=== PATIENT | female | born 1965 | race Caucasian/White ===

== ENCOUNTER → 2019-06-27 | Outpatient (CLI) | payer BC ==
[~2019-06-27] MED LIST: ANTIDEPRESSANT; ASPIRIN325; COLACE100 MG; CRESTOR20 MG; FLEXERIL PO; IBUPROFEN 800800 M1 PO; IBUPROFEN 800800 MG PO; METOCLOPRAMIDE10 MG; NEURONTIN 300M300 M2; NITROGLYCERIN0.4 MG SUBLING; NOHOMEMEDICATIONS; NORFLEX100 MG PO; PENTAZOCINE-NA1 EACH; PERCOCET 5-3251 EACH PO; SEROQUEL200 MG PO; SLEEPING PILL PO; ULTRAM 50MG TAB50 MG PO; VISTARIL 25 MG25 M1; VITAMIN D 5050000 I1; VITAMINC500
[2019-06-27 11:04] LABS: CSF CLARITY CLEAR; CSF COLOR COLORLESS; CSF GLUCOSE 63 mg/dl (40-70); CSF PROTEIN 56.1 mg/dl (15-45); CSF WBC 4 /mm3 (0-10); VOLUME 15 ml
[2019-06-27 11:05] LABS: CSF RBC 0 /mm3
[2019-06-27 11:08] VITALS: BP 124/71
[2019-06-27 12:21] VITALS: BP 118/64
[2019-06-27 12:41] VITALS: BP 120/66
== END | disposition home or self-care (01) ==
LOC: M.RAD 08:26
PROVIDERS: Psychiatry & Neurology Neurology
DX: G93.2 Benign intracranial hypertension (principal); F17.210 Nicotine dependence, cigarettes, uncomplicated; Z98.890 Other specified postprocedural states; Z79.899 Other long term (current) drug therapy; Z91.041 Radiographic dye allergy status; Z88.8 Allergy status to other drugs, medicaments and biological substances; Z79.82 Long term (current) use of aspirin; Z90.49 Acquired absence of other specified parts of digestive tract; Z90.710 Acquired absence of both cervix and uterus

== ENCOUNTER → 2020-11-03 | Outpatient (CLI) | payer BC ==
[2020-11-03 15:35] LABS: ALBUMIN 3.8 g/dL (3.4-5.0); CALCIUM 9.5 mg/dL (8.5-10.1); CREATININE 0.9 mg/dL (0.6-1.3); POTASSIUM 3.9 mmol/L (3.5-5.1); TOTAL BILIRUBIN 0.4 mg/dL (<0.1-1.0); TOTAL PROTEIN 7.7 g/dL (6.4-8.2)
== END ==
LOC: M.CT 15:00
PROVIDERS: ATTEND Family Medicine
DX: K42.9 Umbilical hernia without obstruction or gangrene (principal)

== ENCOUNTER 2021-06-04 04:33 | Emergency (ER) | payer BC ==
[~2021-06-04] VITALS: Ht 162.6 cm; Wt 63.0 kg
[2021-06-04 05:06] LABS: ABSOLUTE BASOPHILS 0.1 thou/uL (0.0-0.2); ABSOLUTE EOSINOPHILS 0.1 thou/uL (0.0-0.7); ABSOLUTE NEUTROPHILS 5.8 thou/uL (1.6-8.1); EOSINOPHILS 1.1 %; HEMATOCRIT 42.4 % (37.0-47.0); HEMOGLOBIN 14.5 gm/dL (12.0-15.0); LYMPHOCYTES 45.6 %; MCH 30.2 pg (26.0-34.0); MCHC 34.3 g/dL (28.0-37.0); MONOCYTES 7.6 %; MPV 9.5 fl. (7.2-11.1); NUCLEATED RBCS 0 /100WBC; PLATELET COUNT* 195 thou/uL (150-400); POLYS 44.7 %; RBC 4.82 mil/uL (4.20-5.00); RDW-CV 13.4 % (10.5-14.5)
[2021-06-04 05:17] LABS: CALCIUM 9.6 mg/dL (8.5-10.1); CREATININE 0.9 mg/dL (0.6-1.3); POTASSIUM 3.6 mmol/L (3.5-5.1)
[2021-06-04 05:20] LABS: ALBUMIN 3.8 g/dL (3.4-5.0); TOTAL BILIRUBIN 0.4 mg/dL (<0.1-1.0); TOTAL PROTEIN 7.6 g/dL (6.4-8.2)
[2021-06-04 05:33] LABS: URINE BILIRUBIN NEGATIVE (Negative); URINE BLOOD 3+ (Negative); URINE CLARITY CLEAR; URINE COLOR YELLOW; URINE GLUCOSE-RANDOM NEGATIVE (Negative); URINE KETONES NEGATIVE (Negative); URINE LEUKOCYTES-REFLEX NEGATIVE (Negative); URINE NITRITE-REFLEX NEGATIVE (Negative); URINE PROTEIN NEGATIVE (Negative); URINE SPECIFIC GRAVITY >= 1.030 (1.005-1.030); URINE UROBILINOGEN 0.2 E.U./dl (0.2-1.0)
[2021-06-04 05:51] LABS: MUCUS 0-3 Light strn/LPF (None Seen); SQUAMOUS 0-3 Few /LPF (0-3); URINE RBC 3-10 Few /HPF (0-2); URINE WBC-REFLEX 0-5 Rare /HPF (0-5)
[2021-06-04 05:52] LABS: CRYSTALS None Seen /LPF (None Seen); HYALINE CASTS 0-3 Few /LPF (None Seen)
[2021-06-04] MEDS ORDERED: ZOFRAN ODT4 MG PO (06:29)
[2021-06-04] MEDS ORDERED: DILAUDID 4 MG TA4 M1 PO (06:29)
[2021-06-04 06:50] VITALS: BP 131/73
== END 2021-06-04 06:51 | disposition home or self-care (01) ==
LOC: M.ERS 04:33
PROVIDERS: Emergency Medicine
DX: N13.2 Hydronephrosis with renal and ureteral calculous obstruction (principal); R11.2 Nausea with vomiting, unspecified; F17.210 Nicotine dependence, cigarettes, uncomplicated; Z98.890 Other specified postprocedural states; Z90.49 Acquired absence of other specified parts of digestive tract; Z98.51 Tubal ligation status; Z90.711 Acquired absence of uterus with remaining cervical stump; Z88.5 Allergy status to narcotic agent